=== PATIENT | female | born 1965 | race Caucasian/White ===

== ENCOUNTER 2018-09-16 12:49 | Emergency (ER) | payer MEDICAID ==
[~2018-09-16] VITALS: Ht 162.6 cm; Wt 73.0 kg
[2018-09-16 12:58] VITALS: BP 139/101
--- NOTE | 2018-09-16 13:08 | NUR ---
PT AMBULATED TO ER BED 06
--- NOTE | 2018-09-16 13:12 | NUR ---
52/F C/O AVULSION WOUND LEFT HAND MIDDLE DIGIT FINGER. BBQ LID FELL ONTO LEFT HAND. BLEEDING CONTROLLED, PRESSURE APPLIED. LAST TDAP VACCINE 5 YEARS AGO. PATIENT STATES PAIN OF 8/10 AT THIS TIME;PATIENT POSITIONED FOR COMFORT; LEFT HAND ELEVATED; BEDRAILS UP X1; BED DOWN. ER MD MADE AWARE OF PT STATUS.
[2018-09-16] MEDS ORDERED: LIDOCAINE/PRILOCAINE 2.5% 5 GM TUBE TP ONE ×2 (14:03→14:15)
[2018-09-16] MEDS ORDERED: HYDROcodone/APAP 10/325 MG 1 TAB TAB PO PRN (14:25)
[2018-09-16] MEDS ORDERED: BACITRACIN OINT 500 UNITS/GM PKT TP ONE ×2 (14:30→14:36)
[2018-09-16 14:39] VITALS: BP 123/89
--- NOTE | 2018-09-16 14:39 | NUR ---
Patient discharged with v/s stable. Written and verbal after care instructions given and explained. Patient verbalized understanding. Ambulatory with steady gait. All questions addressed prior to discharge. Advised to follow up with PMD.
== END 2018-09-16 14:39 | disposition home or self-care (01) ==
LOC: MED 12:49
DX: S61.303A Unspecified open wound of left middle finger with damage to nail, initial encounter (principal); W20.8XXA Other cause of strike by thrown, projected or falling object, initial encounter; Y93.89 Activity, other specified; Y92.89 Other specified places as the place of occurrence of the external cause; Y99.8 Other external cause status
CPT/HCPCS: 90471; 90715; 99284

== ENCOUNTER 2019-06-15 10:08 | Emergency (ER) | payer SELFPAY ==
[~2019-06-15] VITALS: Ht 162.6 cm; Wt 72.1 kg
[2019-06-15 10:24] VITALS: BP 147/93
--- NOTE | 2019-06-15 10:28 | NUR ---
WAIT AT LOBBY.
--- NOTE | 2019-06-15 11:40 | NUR ---
53 YO F CAME IN TO ER C/O RIGHT KNEE LACERATION FROM FALLING ON HER KNEES. PT STATES PAIN OF 8/10 THROBBING. CLEANSED WITH SOAP AND WATER, HYDROGEN PEROXIDE. IN ER, PT IS ABLE TO AMBULATE. ACTIVE BLEEDING ON R KNEE LACERATION. CR <4SECS. VSS. PATIENT SITTING ON BED. ERMD MADE AWARE OF PT STATUS.
[2019-06-15] MEDS ORDERED: LIDOCAINE/EPI 1% 1:100000 20 ML VIAL INJ ONE (13:55)
[2019-06-15] MEDS ORDERED: HYDROcodone/APAP 5/325 MG 1 TAB TAB PO ONE (13:55)
[2019-06-15] MEDS ORDERED: BACITRACIN OINT 500 UNITS/GM PKT TP ONE (15:18)
--- NOTE | 2019-06-15 15:32 | NUR ---
APPLIED BACITRACIN AND NON ADHERENT AND GAUZE TO RIGHT KNEE WITHOUT ANY ISSUES. PT DEMONSTRATES PROPER USE OF CRUTCHES.
[2019-06-15 15:41] VITALS: BP 147/93
--- NOTE | 2019-06-15 15:42 | NUR ---
Patient discharged with v/s stable. Written and verbal after care instructions given and explained. Patient alert, oriented and verbalized understanding of instructions. Ambulatory with crutches. All questions addressed prior to discharge. ID band removed. Patient advised to follow up with PMD. Rx of KEFLEX, NORCO given. Patient educated on indication of medication including possible reaction and side effects. Opportunity to ask questions provided and answered.
== END 2019-06-15 15:42 | disposition home or self-care (01) ==
LOC: MED 10:08
DX: S81.011A Laceration without foreign body, right knee, initial encounter (principal); S50.02XA Contusion of left elbow, initial encounter; S50.312A Abrasion of left elbow, initial encounter; S60.512A Abrasion of left hand, initial encounter; W01.0XXA Fall on same level from slipping, tripping and stumbling without subsequent striking against object, initial encounter; Y93.89 Activity, other specified; Y92.89 Other specified places as the place of occurrence of the external cause; Y99.8 Other external cause status
CPT/HCPCS: 12002; 73080; 73562; 99284; J2001; Q0092